=== PATIENT | male | born 2005 | race Two or more races ===

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

== ENCOUNTER 2024-05-04 23:07 | Emergency (ER) | payer BC, MEDICAID ==
[~2024-05-04] VITALS: Ht 165.1 cm; Wt 79.4 kg
[2024-05-05] MEDS ORDERED: PANTOPRAZOLE 40 MG VIAL ONE (00:48)
[2024-05-05] MEDS ORDERED: ONDANSETRON HCL/PF 4 MG/2 ML VIAL ONE (00:48)
[2024-05-05 00:54] LABS: BASOPHILS # (AUTO) 0.1 K/uL (0.0-0.2); BASOPHILS % (AUTO) 0.8 % (0.0-2.0); EOSINOPHILS # (AUTO) 0.1 K/uL (0.0-0.7); HEMATOCRIT 47 % (39-51); HEMOGLOBIN 16.1 g/dL (13.5-17.5); LYMPHOCYTES % (AUTO) 19.8 % (20.0-44.0); MEAN CORPUSCULAR HEMOGLOBIN 29 PG (26.0-33.0); MEAN CORPUSCULAR HGB CONC 34 g/dl (31.0-36.0); MEAN CORPUSCULAR VOLUME 86 fL (80-96); MONOCYTES # (AUTO) 0.7 K/uL (0.1-1.30); MONOCYTES % (AUTO) 7.3 % (2.0-12.0); NEUTROPHILS # (AUTO) 7.1 K/uL (1.8-8.9); NEUTROPHILS % (AUTO) 71.1 % (43.0-81.0); PLATELET COUNT (AUTO) 364 K/uL (150-450); RED BLOOD CELL COUNT(AUTO) 5.48 MIL/uL (4.5-6.0); RED CELL DISTRIBUTION WIDTH 12.5 % (11.5-15.0); WHITE BLOOD COUNT (AUTO) 9.9 K/uL (4.3-11.0)
[2024-05-05] MEDS: IV NS 0.9% 1,000 ML BAG IV ONE (00:56)
[2024-05-05] MEDS: PANTOPRAZOLE 40 MG VIAL IV ONE (00:56)
[2024-05-05] MEDS: ONDANSETRON HCL/PF 4 MG/2 ML VIAL IVP ONE (00:57)
[2024-05-05 01:00] LABS: CALCIUM, SERUM 9.8 mg/dL (8.5-10.1); CREATININE 0.9 mg/dL (0.6-1.3); POTASSIUM 3.6 mmol/L (3.5-5.1)
[2024-05-05 01:07] LABS: ALBUMIN 4.5 g/dL (3.4-5.0); BILIRUBIN,DIRECT 0.2 mg/dL (0.0-0.2); BILIRUBIN,TOTAL 1.4 mg/dL (0.2-1.0); TOTAL PROTEIN, SERUM 8.5 g/dL (6.4-8.2)
[2024-05-05 01:14] LABS: INR 1.02 (0.91-1.10); PARTIAL THROMBOPLASTIN TIME 25.7 SEC (24.3-34.3); PROTHROMBIN TIME 10.8 SECS (9.2-11.1)
[2024-05-05] MEDS ORDERED: OMEP10CA5 PO (01:41)
[2024-05-05 01:53] VITALS: BP 128/70; TEMP 98; O2SAT 100
== END 2024-05-05 01:54 | disposition home or self-care (01) ==
LOC: ER 23:10
DX: K29.70 Gastritis, unspecified, without bleeding (principal); R11.2 Nausea with vomiting, unspecified; Z60.2 Problems related to living alone; Z79.899 Other long term (current) drug therapy
CPT/HCPCS: 99285; 71045; 93005; 74176; 96374; 96361; 96375; 85025; 80048; 83690; 80076; 36415; 85730; J2405; J7030; J2470

== ENCOUNTER 2024-07-06 22:13 | Emergency (ER) | payer MEDICAID, OTHER ==
[~2024-07-06] VITALS: Ht 172.7 cm; Wt 81.6 kg
[~2024-07-06 22:13] MED LIST: OMEP10CA5 PO
[2024-07-06 23:00] VITALS: BP 133/73; TEMP 99.8; O2SAT 98
[2024-07-07] MEDS ORDERED: BENZ-13 PO (01:27)
[2024-07-07] MEDS ORDERED: GUAI1TBM19 PO (01:27)
[2024-07-07] MEDS ORDERED: PRED20TA PO (01:27)
== END 2024-07-07 01:31 | disposition home or self-care (01) ==
LOC: ER 22:29
DX: J02.9 Acute pharyngitis, unspecified (principal); B97.89 Other viral agents as the cause of diseases classified elsewhere; R05.9 Cough, unspecified; Z60.2 Problems related to living alone
CPT/HCPCS: 71045-TC

== ENCOUNTER 2024-07-13 02:24 | Emergency (ER) | payer MEDICAID ==
[~2024-07-13] VITALS: Ht 172.7 cm; Wt 81.6 kg
[~2024-07-13 02:24] MED LIST changes: +BENZ-13 PO; +GUAI1TBM19 PO; +PRED20TA PO
[2024-07-13 03:19] VITALS: BP 133/74; TEMP 98.4
[2024-07-13] MEDS ORDERED: AZIT250T PO (05:16)
[2024-07-13] MEDS ORDERED: AZITHROMYCIN 250 MG TABLET ONE (05:25)
[2024-07-13] MEDS: AZITHROMYCIN 250 MG TABLET PO ONE (05:28)
[2024-07-13 05:29] VITALS: O2SAT 99
== END 2024-07-13 05:29 | disposition home or self-care (01) ==
LOC: ER 02:29
DX: J40 Bronchitis, not specified as acute or chronic (principal); Z79.52 Long term (current) use of systemic steroids; Z79.899 Other long term (current) drug therapy; Z60.2 Problems related to living alone
CPT/HCPCS: 71045-TC

== ENCOUNTER 2024-07-21 22:38 | Emergency (ER) | payer MEDICAID ==
[~2024-07-21 22:38] MED LIST changes: +AZIT250T PO
== END 2024-07-21 23:14 | disposition left against medical advice (07) ==
LOC: ER 22:40
DX: L50.0 Allergic urticaria (principal); L50.9 Urticaria, unspecified; T78.40XA Allergy, unspecified, initial encounter; Z53.21 Procedure and treatment not carried out due to patient leaving prior to being seen by health care provider; X58.XXXA Exposure to other specified factors, initial encounter

== ENCOUNTER 2025-04-07 01:01 | Emergency (ER) | payer MEDICAID ==
[~2025-04-07] VITALS: Ht 172.7 cm; Wt 77.1 kg
[2025-04-07 01:17] VITALS: BP 133/77; TEMP 97.8; O2SAT 99
--- NOTE | 2025-04-07 01:20 | NUR ---
CAME W CC OF SORE THROAT X2 DAYS AND SKIN ITCHINESS/RASH. WORSEN WHEN ITS VERY COLD PT A/OX4. TOLERATING R/A WELL WITH NO RESP DISTRESS. SAFETY MEASURES IN PLACE.
--- NOTE | 2025-04-07 01:24 | NUR ---
DR VENKATA APARICIO AT PT'S BEDSIDE FOR EVAL
[2025-04-07] MEDS ORDERED: PRED50TA PO (01:28)
[2025-04-07] MEDS ORDERED: DIPH25TA62 PO (01:28)
--- NOTE | 2025-04-07 01:39 | NUR ---
Patient discharged to home in stable condition. RX Written and verbal after care instructions given. Patient verbalizes understanding of instruction.
== END 2025-04-07 01:40 | disposition home or self-care (01) ==
LOC: ER 01:05
DX: L50.9 Urticaria, unspecified (principal); J02.9 Acute pharyngitis, unspecified; F17.200 Nicotine dependence, unspecified, uncomplicated; Z79.52 Long term (current) use of systemic steroids; Z79.899 Other long term (current) drug therapy; Z60.2 Problems related to living alone
CPT/HCPCS: 99283; Q0163; J7512